=== PATIENT | male | born 2005 | race Caucasian/White ===

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

== ENCOUNTER 2025-07-10 09:11 | Emergency (ER) | payer SELFPAY ==
[2025-07-10 09:15] VITALS: BP 163/96; PULSE 96; TEMP 36.9; O2SAT 99; BMI 23.7
--- NOTE | 2025-07-10 09:48 | ED.GENADUL1 ---
HPI HPI - General Adult General Chief complaint: Abdominal Pain Stated complaint: ABDOMINAL PAIN Time Seen by Provider: 07/10/25 09:33 Source: patient Mode of arrival: walk-in Limitations: no limitations History of Present Illness HPI narrative: The patient is 19 years old male presenting to the ER after he has been having some abdominal pain mostly for the last 3 months, although almost a month ago he presented to [facility] to have a full evaluation in the ER and showed no acute pathology in the CAT scan and blood workup He was told that he had muscular pain. The patient mentioned that the pain is all over the abdomen sometimes on the right sometimes in the left he does not have it at the moment and mostly related to some movement. It get better by itself it feels like a cramp No nausea no vomiting no change in bowel movement Related Data Home Medications ?Medication ?Instructions ?Recorded ?Confirmed methocarbamol 750 mg tablet 750 mg PO BID 07/10/25 07/10/25 naproxen 500 mg tablet mg 07/10/25 Allergies Allergy/AdvReac Type Severity Reaction Status Date / Time No Known Drug Allergies Allergy Verified 02/12/23 20:47 Opioid HPI Opioid Management Most Recent Opioid Data: Last Pain Scale 8 02/12/23, 21:00 Review of Systems ROS Status of ROS 10 or more systems reviewed and unremarkable except as noted in history and below PFSH PFS Social History Smoking status: Current every day smoker Little interest or pleasure in doing things: not at all Feeling down, depressed, or hopeless: not at all Exam Narrative Exam Narrative: Nurses notes and vital signs reviewed and patient is not hypoxic. General: Well-appearing and in no apparent distress. Skin: Warm, dry, no pallor noted. No rash. Head: Normocephalic, atraumatic. Neck: Supple, non-tender. Cardiovascular: Regular Rate and Rhythm without murmur, gallop or rub. Respiratory: No accessory muscle use or respiratory distress. Lungs are clear to auscultation, no wheezing, rales or rhonchi Chest Wall: no tenderness Back: No midline thoracic or lumbar vertebral tenderness. No CVA tenderness Musculoskeletal: normal ROM, no calf or popliteal tenderness, no lower extremity edema/swelling GI: Abdomen is soft, non-distended. Normal bowel sounds. No masses appreciated. No tenderness to palpation. No rebound, guarding, or rigidity noted. Neurological: A&O x4. No cranial nerve dysfunction observed. No truncal ataxia. Moves all extremities. Sensation intact. Psychiatric: Cooperative and interactive. Normal mood and affect. Constitutional Vital Signs, click to edit/add: Last Vital Signs Temp 98.4 F 07/10/25 09:15 Pulse 96 H 07/10/25 09:15 Resp 18 07/10/25 09:15 BP 163/96 H 07/10/25 09:15 Pulse Ox 99 07/10/25 09:15 O2 Del Method Room Air 07/10/25 09:15 Course Vital Signs Vital signs: Vital Signs Temperature 98.4 F 07/10/25 09:15 Pulse Rate 96 H 07/10/25 09:15 Respiratory Rate 18 07/10/25 09:15 Blood Pressure 163/96 H 07/10/25 09:15 Pulse Oximetry 99 07/10/25 09:15 Oxygen Delivery Method Room Air 07/10/25 09:15 Temperature 98.4 F 07/10/25 09:15 Pulse Rate 96 H 07/10/25 09:15 Respiratory Rate 18 07/10/25 09:15 Blood Pressure 163/96 H 07/10/25 09:15 Pulse Oximetry 99 07/10/25 09:15 Oxygen Delivery Method Room Air 07/10/25 09:15 Medical Decision Making MDM Narrative Medical decision making narrative: The patient examination was completely benign and his workup done in [facility] almost a month ago was adequate The patient pain right now is mostly muscular he was just instructed hydration and stretching The patient to follow-up with the primary care within 2 to 3 days and to come back to the ER in case of any worsening of the current symptoms or any new symptoms or concerns Discharge Plan Discharge Chief Complaint: Abdominal Pain Clinical Impression: Muscle cramp Patient Disposition: Home, Self-Care Time of Disposition Decision: 09:49 Condition: Good Prescriptions / Home Meds: No Action naproxen 500 mg tablet methocarbamol 750 mg tablet 750 mg PO BID Print Language: Greek Instructions: Muscle Spasm (ED), Muscle Cramp (ED) Referrals: Physician,Non-Staff, MD [Primary Care Provider] - 1 week Discharge Date/Time: 07/10/25 10:07
== END 2025-07-10 10:07 | disposition home or self-care (01) ==
PROVIDERS: Emergency Provider Emergency Medicine
DX: M62.838 Other muscle spasm (principal)
CPT/HCPCS: 99281; 99282